=== PATIENT | female | born 1965 | race Caucasian/White ===

== ENCOUNTER 2017-10-12 02:42 | Emergency (ER) | payer BC ==
[~2017-10-12] VITALS: Ht 157.5 cm; Wt 75.8 kg
[2017-10-12] MEDS ORDERED: CIPR5DRO EACH EAR (03:19)
[2017-10-12 03:25] VITALS: BP 114/76
== END 2017-10-12 03:26 | disposition home or self-care (01) ==
LOC: ER 02:42
DX: T16.2XXA Foreign body in left ear, initial encounter (principal); X58.XXXA Exposure to other specified factors, initial encounter; Y93.89 Activity, other specified; Z79.899 Other long term (current) drug therapy; Y92.89 Other specified places as the place of occurrence of the external cause; Y99.8 Other external cause status
CPT/HCPCS: 69200; 99284